=== PATIENT | female | born 1930 | race Asian ===

== ENCOUNTER 2022-04-08 08:40 | Inpatient (IN) | payer MEDICARE, OTHER ==
[~2022-04-08] VITALS: Ht 152.4 cm; Wt 58.5 kg
[~2022-04-08 08:40] MED LIST: ALPR-392 MT; CELE200C PO; MICAR8 PO; OMEP20TA23 PO; OXYB5TAB PO; TRAM50TA3 PO; VENL37.55 PO
[2022-04-08] MEDS ORDERED: MORPHINE SULFATE 4 MG/ML CPJ (NOT FOR IM USE) IV STA (10:43)
[2022-04-08 11:30] LABS: HEMATOCRIT. 40.7 % (36.0-48.0); HEMOGLOBIN. 13.6 g/dL (12.0-16.0); MEAN CORPUSCULAR HEMOGLOBIN 31.1 pg (28.0-32.0); MEAN CORPUSCULAR VOLUME 92.9 fL (81.0-99.0); MEAN PLATELET VOLUME 8.3 fl (7.4-10.4); PLATELET 271 x1000/uL (130-400); RED BLOOD CELL COUNT 4.38 mill/uL (4.2-5.4); RED CELL DISTRIBUTION WIDTH 13.5 % (11.6-14.6)
[2022-04-08 11:35] LABS: CHLORIDE 101 mEq/L (98-107)
[2022-04-08 11:36] LABS: PROTHROMBIN TIME 10.3 sec (9.6-11.0)
[2022-04-08] MEDS ORDERED: IOHEXOL-300 100 ML BOTTLE ONE (13:23)
[2022-04-08] MEDS ORDERED: MORPHINE SULFATE 4 MG/ML CPJ (NOT FOR IM USE) IV ONE (13:30)
[2022-04-08 15:05] LABS: CLARITY URINE CLEAR (CLEAR); COLOR URINE YELLOW (YELLOW); KETONES URINE NEGATIVE (NEGATIVE); LEUKOCYTE ESTERASE URINE NEGATIVE (NEGATIVE); NITRITE URINE POSITIVE (NEGATIVE); OCCULT BLOOD URINE 1+ (NEGATIVE); PH URINE 7.5 (4.5-8.0); PROTEIN URINE NEGATIVE (NEGATIVE); SPECIFIC GRAVITY URINE 1.046 (1.005-1.030); UROBILINOGEN URINE 0.2 E.U./dL (0.2-1.0)
[2022-04-08] MEDS ORDERED: ACETAMINOPHEN 650MG SUPP PR PRN ×2 (16:00)
[2022-04-08] MEDS ORDERED: IPRATROPIUM/ALBUTEROL 0.5-3(2.5)MG/3ML NEB HHN PRN (16:00)
[2022-04-08] MEDS ORDERED: ONDANSETRON HCL 4MG/2ML INJ IV PRN (16:00)
[2022-04-08 16:20] VITALS: BP 136/77
[2022-04-08 16:40] VITALS: BP 136/77
[2022-04-08] MEDS: SODIUM CHLORIDE 0.9% 1,000 ML IV SCH (18:01)
[2022-04-08 20:00] VITALS: BP 140/74
[2022-04-09] VITALS (7 sets, daily range): BP systolic 121–129; BP diastolic 57–69
[2022-04-09] MEDS: MORPHINE SULFATE 2 MG/ML CPJ (NOT FOR IM USE) IV PRN ×3 (03:23→18:00)
[2022-04-09] MEDS: SODIUM CHLORIDE 0.9% 1,000 ML IV SCH ×2 (06:16→17:59)
[2022-04-09 07:05] LABS: PLATELET ESTIMATE NORMAL
[2022-04-09 09:04] LABS: HEMATOCRIT. 34.8 % (36.0-48.0); HEMOGLOBIN. 11.7 g/dL (12.0-16.0); MEAN CORPUSCULAR HEMOGLOBIN 31.3 pg (28.0-32.0); MEAN CORPUSCULAR VOLUME 92.8 fL (81.0-99.0); MEAN PLATELET VOLUME 8.3 fl (7.4-10.4); PLATELET 233 x1000/uL (130-400); RED BLOOD CELL COUNT 3.75 mill/uL (4.2-5.4); RED CELL DISTRIBUTION WIDTH 13.8 % (11.6-14.6)
[2022-04-09] MEDS: PANTOPRAZOLE SODIUM 40 MG/VIAL IV SCH (09:30)
[2022-04-09 10:18] LABS: CHLORIDE 107 mEq/L (98-107)
[2022-04-09 14:14] LABS: PLATELET ESTIMATE NORMAL
[2022-04-10] MEDS: MORPHINE SULFATE 2 MG/ML CPJ (NOT FOR IM USE) IV PRN ×4 (03:53→21:43)
[2022-04-10 04:00] VITALS: BP 131/69
[2022-04-10 08:00] VITALS: BP 145/76
[2022-04-10 08:31] LABS: PHOSPHORUS 2.4 mg/dL (2.5-4.9)
[2022-04-10] MEDS: PANTOPRAZOLE SODIUM 40 MG/VIAL IV SCH (09:26)
[2022-04-10] MEDS: SODIUM CHLORIDE 0.9% 1,000 ML IV SCH ×2 (09:27→21:36)
[2022-04-10 12:00] VITALS: BP 137/70
[2022-04-10 16:00] VITALS: BP 147/70
[2022-04-10 20:00] VITALS: BP 144/83
[2022-04-11] VITALS: BP 146/74
[2022-04-11 04:00] VITALS: BP 145/68
[2022-04-11 07:23] LABS: BASOPHILS % 0.3 % (0.0-2.0); EOSINOPHILS % 0.7 % (0.0-5.0); HEMATOCRIT. 36.1 % (36.0-48.0); HEMOGLOBIN. 12.1 g/dL (12.0-16.0); LYMPHOCYTES % 9.5 % (20.0-50.0); MEAN CORPUSCULAR HEMOGLOBIN 31.3 pg (28.0-32.0); MEAN CORPUSCULAR VOLUME 93.4 fL (81.0-99.0); MEAN PLATELET VOLUME 8.2 fl (7.4-10.4); MONOCYTES % 9.5 % (2.0-8.0); PLATELET 233 x1000/uL (130-400); RED BLOOD CELL COUNT 3.87 mill/uL (4.2-5.4); RED CELL DISTRIBUTION WIDTH 13.9 % (11.6-14.6)
[2022-04-11 08:00] VITALS: BP 156/76
[2022-04-11] MEDS: MORPHINE SULFATE 2 MG/ML CPJ (NOT FOR IM USE) IV PRN ×3 (09:03→22:15)
[2022-04-11] MEDS: PANTOPRAZOLE SODIUM 40 MG/VIAL IV SCH (09:03)
[2022-04-11 09:53] LABS: CHLORIDE 112 mEq/L (98-107)
[2022-04-11] MEDS ORDERED: DIATR MEGLU/DIATRIZOATE SOLN 120ML ONE (10:21)
[2022-04-11] MEDS: SODIUM CHLORIDE 0.9% 1,000 ML IV SCH ×2 (10:40→12:46)
[2022-04-11 12:00] VITALS: BP 154/76
[2022-04-11] MEDS ORDERED: KCL 20MEQ/100ML PREMIX 100 ML IV NR (15:00)
[2022-04-11 16:00] VITALS: BP 150/80
[2022-04-11 20:00] VITALS: BP 147/83
[2022-04-12] VITALS (7 sets, daily range): BP systolic 125–158; BP diastolic 52–85
[2022-04-12] MEDS: SODIUM CHLORIDE 0.9% 1,000 ML IV SCH ×2 (04:43→13:33)
[2022-04-12] MEDS: PANTOPRAZOLE SODIUM 40 MG/VIAL IV SCH (08:33)
[2022-04-12 08:47] LABS: BASOPHILS % 0.4 % (0.0-2.0); EOSINOPHILS % 1.3 % (0.0-5.0); HEMATOCRIT. 36.3 % (36.0-48.0); HEMOGLOBIN. 12.2 g/dL (12.0-16.0); LYMPHOCYTES % 17.4 % (20.0-50.0); MEAN CORPUSCULAR HEMOGLOBIN 31.5 pg (28.0-32.0); MEAN CORPUSCULAR VOLUME 93.9 fL (81.0-99.0); MEAN PLATELET VOLUME 8.1 fl (7.4-10.4); MONOCYTES % 10.9 % (2.0-8.0); PLATELET 235 x1000/uL (130-400); RED BLOOD CELL COUNT 3.86 mill/uL (4.2-5.4); RED CELL DISTRIBUTION WIDTH 13.6 % (11.6-14.6)
[2022-04-12] MEDS: MORPHINE SULFATE 2 MG/ML CPJ (NOT FOR IM USE) IV PRN ×2 (10:37→21:10)
[2022-04-12 11:18] LABS: CHLORIDE 115 mEq/L (98-107)
[2022-04-12] MEDS ORDERED: POTASSIUM CHLORIDE 20MEQ/PACKET PO NR (13:30)
[2022-04-12] MEDS ORDERED: NALOXONE HCL 0.4MG/ML VIAL IV PRN (23:00)
[2022-04-13] VITALS: BP 146/76
[2022-04-13] MEDS: SODIUM CHLORIDE 0.9% 1,000 ML IV SCH ×2 (02:40→16:00)
[2022-04-13 04:00] VITALS: BP 136/63
[2022-04-13 08:00] VITALS: BP 138/66
[2022-04-13 08:22] LABS: HEMATOCRIT. 31.9 % (36.0-48.0); HEMOGLOBIN. 10.9 g/dL (12.0-16.0); MEAN CORPUSCULAR HEMOGLOBIN 31.7 pg (28.0-32.0); MEAN CORPUSCULAR VOLUME 92.9 fL (81.0-99.0); MEAN PLATELET VOLUME 8.2 fl (7.4-10.4); PLATELET 198 x1000/uL (130-400); RED BLOOD CELL COUNT 3.43 mill/uL (4.2-5.4); RED CELL DISTRIBUTION WIDTH 13.3 % (11.6-14.6)
[2022-04-13] MEDS: PANTOPRAZOLE SODIUM 40 MG/VIAL IV SCH (08:41)
[2022-04-13 09:55] LABS: CHLORIDE 111 mEq/L (98-107)
[2022-04-13 12:00] VITALS: BP 136/70
[2022-04-13] MEDS ORDERED: POTASSIUM CHLORIDE 20MEQ TABLET SR PO NR (15:00)
[2022-04-13] MEDS ORDERED: INFLUENZA VACCINE 05/PF 0.5 ML SYRINGE IM ONE (15:00)
[2022-04-13 16:00] VITALS: BP 131/72
[2022-04-13 17:47] LABS: PLATELET ESTIMATE NORMAL
[2022-04-13 20:00] VITALS: BP 134/66
[2022-04-14] VITALS: BP 135/60
[2022-04-14 04:00] VITALS: BP 118/67
[2022-04-14] MEDS: SODIUM CHLORIDE 0.9% 1,000 ML IV SCH (04:26)
[2022-04-14 08:00] VITALS: BP 122/63
[2022-04-14 08:10] LABS: BASOPHILS % 0.9 % (0.0-2.0); EOSINOPHILS % 4.3 % (0.0-5.0); HEMOGLOBIN. 11.4 g/dL (12.0-16.0); LYMPHOCYTES % 27.3 % (20.0-50.0); MEAN CORPUSCULAR VOLUME 92.7 fL (81.0-99.0); MEAN PLATELET VOLUME 8.6 fl (7.4-10.4); MONOCYTES % 13.5 % (2.0-8.0); PLATELET 212 x1000/uL (130-400); RED BLOOD CELL COUNT 3.67 mill/uL (4.2-5.4); RED CELL DISTRIBUTION WIDTH 13.6 % (11.6-14.6)
[2022-04-14] MEDS: PANTOPRAZOLE SODIUM 40 MG/VIAL IV SCH (08:12)
[2022-04-14 08:44] LABS: CHLORIDE 108 mEq/L (98-107)
[2022-04-14 12:00] VITALS: BP 127/59
[2022-04-14 12:52] VITALS: BP 127/59
== END 2022-04-14 14:45 | disposition home health service (06) | DRG 389 ==
LOC: ER 08:40 → 7EST 13:26
PROVIDERS: ADMIT Internal Medicine; ATTEND Internal Medicine
DX: K56.609 Unspecified intestinal obstruction, unspecified as to partial versus complete obstruction (principal); E87.20 Acidosis, unspecified; K57.30 Diverticulosis of large intestine without perforation or abscess without bleeding; I10 Essential (primary) hypertension; K21.9 Gastro-esophageal reflux disease without esophagitis; M19.90 Unspecified osteoarthritis, unspecified site; E11.9 Type 2 diabetes mellitus without complications; R32 Unspecified urinary incontinence; F41.9 Anxiety disorder, unspecified; F32.A Depression, unspecified; Z87.19 Personal history of other diseases of the digestive system; Z90.710 Acquired absence of both cervix and uterus; Z79.899 Other long term (current) drug therapy
CPT/HCPCS: 36415; 71045; 74018; 74177; 74250; 80048; 80053; 81003; 83605; 83735; 84100; 85025; 86850; 86900; 90686; 97116; 97162; 97166; 99291; C1893; C9113; J2270; J3480; Q9963; Q9967